=== PATIENT | male | born 1995 | race Caucasian/White ===

== ENCOUNTER 2018-01-27 15:25 | Emergency (ER) | payer OTHER, SELFPAY ==
[2018-01-27] VITALS (32 sets, daily range): BP systolic 102–123; BP diastolic 56–94; PULSE 68–87; RESP 12–31; TEMP 37; O2SAT 97–100
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
[2018-01-27] MEDS: Normal Saline 1,000 ML 1000 ML IV (16:00)
[2018-01-27 16:10] LABS: Abs Immature Grans 0.07 k/cumm (0.0-0.09); Absolute Basophil Count 0.02 k/cumm (0.0-0.2); Absolute Monocyte Count 1.25 k/cumm (0.11-0.7); Basophils % 0.1; Eosinophils % 0.1; HCT 40.1 % (40.0-50.0); Immature Grans % 0.4; Lymphocytes % 6.3; Mean Corp. HGB Concentration 34.9 g/dL (32.0-36.0); Mean Corpuscular Hemoglobin 30.6 pg (27.0-33.0); Mean Corpuscular Volume 87.7 fL (80-95); Mean Platelet Volume 10.4 fL (8.0-11.0); Neutrophils % 86.1; Platelet Count 233 x1000/uL (130-400); RBC 4.57 m/cumm (4.50-6.00); RBC Distribution Width 12.4 % (11.8-14.1)
[2018-01-27 16:11] LABS: Absolute Eosinophil Count 0.02 k/cumm (0.0-0.7); Absolute Lymphocyte Count 1.12 k/cumm (1.2-3.4); Absolute Neutrophil Count 15.33 k/cumm (1.2-6.7)
[2018-01-27 16:27] LABS: ALT 38 U/L (12-78); AST 52 U/L (15-37); Albumin 4.5 g/dL (3.4-5.0); Alkaline Phosphatase 107 U/L (46-116); BUN 12 mg/dL (7-18); Bilirubin, Total 0.4 mg/dL (0.2-1.0); CREATININE 0.95 mg/dL (0.70-1.30); Calcium 9.2 mg/dL (8.5-10.1); Chloride 103 mmol/L (98-107); Glucose 79 mg/dL (70-100); Sodium 142 mmol/L (136-145); Total Protein 7.9 g/dL (6.4-8.2)
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
[2018-01-27] MEDS: Ketorolac 30 MG/ML VIAL IVP (16:49)
[2018-01-27] MEDS: Omnipaque 350 MG/ML 100 ML BTL IJ (16:59)
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
== END 2018-01-27 18:42 | disposition home or self-care (01) ==
LOC: ER 03-07 15:53
PROVIDERS: Emergency Provider Emergency Medicine
DX: S27.321A Contusion of lung, unilateral, initial encounter (principal); S36.020A Minor contusion of spleen, initial encounter; S80.212A Abrasion, left knee, initial encounter; Z53.29 Procedure and treatment not carried out because of patient's decision for other reasons; V17.0XXA Pedal cycle driver injured in collision with fixed or stationary object in nontraffic accident, initial encounter; Y93.55 Activity, bike riding
CPT/HCPCS: 36415; 73562; 74177; 80053; 93005; 96361; 96374; 99285; 71260; 85025; 93010; J1885; J3490